=== PATIENT | male | born 1995 | race Caucasian/White ===

== ENCOUNTER → 2020-08-18 | Outpatient (CLI) | payer BC ==
--- NOTE | 2020-08-18 11:30 | US ---
EXAMINATION TYPE: US abdomen complete DATE OF EXAM: 08/18/2020 COMPARISON: None CLINICAL HISTORY: 24-year-old male R10.9 abdominal Pain. Intermittent epigastric pain x 1 year, espec ially after greasy food; N&V TECHNIQUE: Multiple sonographic images of the abdomen are obtained. FINDINGS: EXAM MEASUREMENTS: Liver Length: 13.4 cm Gallbladder Wall: 0.2 cm CBD: 0.2 cm Spleen: 11.4 cm Right Kidney: 9.7 x 5.1 x 4.0 cm Left Kidney: 10.6 x 5.6 x 4.6 cm Pancreas: Most of the pancreas is obscured by bowel gas. Liver: Echogenic and heterogeneous. No focal lesion. Gallbladder: multiple shadowing gallstones with non mobile stone in gallbladder neck measuring up to 2.0 cm; sludge seen in fundus. No abnormal gallbladder distention or wall thickening seen. Evidence for sonographic Barrera's sign: yes CBD: wnl Spleen: wnl Kidneys: No hydronephrosis. Upper IVC: wnl Abd Aorta: wnl IMPRESSION: 1. Multiple gallstones along with sludge. A 2 cm stone is immobile at the level of the gallbladder ne ck. However, there is no hydropic change or wall thickening seen at this time. Given the presence of a positive sonographic Barrera sign, if concern for early acute cholecystitis or chronic cholecystitis , consider HIDA scan. 2. Moderate hepatic steatosis. 3. No biliary ductal dilatation.
== END ==
LOC: RADUSWWP 08:24
PROVIDERS: ATTEND Family Medicine
DX: K80.20 Calculus of gallbladder without cholecystitis without obstruction (principal); K76.0 Fatty (change of) liver, not elsewhere classified
CPT/HCPCS: 76700